=== PATIENT | female | born 1995 | race Caucasian/White ===

== ENCOUNTER 2021-05-27 02:13 | Emergency (ER) | payer OTHER ==
[~2021-05-27 02:13] MED LIST: 8 HOUR650 MG PO; CLARITIN-D 121 EACH PO; ZOFRAN4 MG PO
[2021-05-27 03:07] LABS: CORONAVIRUS 2019 SARS-COV-2 NEGATIVE (NEGATIVE); INFLUENZA A NAA NEGATIVE (NEGATIVE)
[2021-05-27] MEDS ORDERED: ONDANSETRON ODT4 MG SL (03:30)
[2021-05-27] MEDS ORDERED: MEDROL 4MG DOSEP4 MG PO (03:30)
[2021-05-27] MEDS ORDERED: IBUPROFEN800 MG PO (03:30)
[2021-05-27] MEDS ORDERED: HYDROCODONE-CH473 ML PO (03:30)
[2021-05-27] MEDS ORDERED: ZPAK PO (03:30)
[2021-05-27] MEDS ORDERED: VENTOLIN HFA IN18 GM INH (03:35)
[2021-05-27 04:36] LABS: BILIRUBIN NEGATIVE (NEGATIVE); BLOOD NEGATIVE Ery/uL (NEGATIVE); CLARITY CLEAR (CLEAR); COLOR YELLOW (YELLOW); GLUCOSE (U) NORMAL (NORMAL); LEUKOCYTES NEGATIVE Leu/uL (NEGATIVE); NITRITE NEGATIVE (NEGATIVE); PROTEIN NEGATIVE (NEGATIVE); SPECIFIC GRAVITY 1.025 (1.001-1.030); UROBILINOGEN 0.2 mg/dL (0.2-1.0)
== END 2021-05-27 04:02 | disposition home or self-care (01) ==
LOC: FER 02:13
PROVIDERS: Emergency Medicine Emergency Medical Services
DX: J18.9 Pneumonia, unspecified organism (principal); J06.9 Acute upper respiratory infection, unspecified; Z20.822 Contact with and (suspected) exposure to COVID-19; Z86.16 Personal history of COVID-19
CPT/HCPCS: 71045; 81003; 94640; 94664; J1885; U0002